=== PATIENT | male | born 1960 | race African-American/Black ===

== ENCOUNTER 2017-05-05 15:57 | Inpatient (IN) | payer OTHER ==
[~2017-05-05] VITALS: Ht 170.2 cm; Wt 69.9 kg
--- NOTE | 2017-05-05 16:05 | NUR ---
PRESENTS TO ER C/O LEFT LEG PAIN SINCE LAST NIGHT. NON TRAUMATIC. PER FAMILY PT SLURRED SPEECH LAST NIGHT 2099. CURRENTLY A/OX 4. BREATHING EVEN AND UNLABORED. NO SOB. VITALS STABLE. SAFETY AND COMFORT MEASURES IN PLACE. AWAITING MD ORDERS.
--- NOTE | 2017-05-05 17:15 | NUR ---
new iv started on left hand, 22 g. blood drawn and sent to lab.
[2017-05-05 17:29] LABS: BASOPHILS # (AUTO) 0.1 /CMM (0.0-0.2); BASOPHILS % (AUTO) 1.3 % (0.0-2.0); EOSINOPHILS # (AUTO) 0.1 /CMM (0.0-0.7); EOSINOPHILS % (AUTO) 2.8 % (0.0-6.0); HEMATOCRIT 30 % (39-51); HEMOGLOBIN 10.3 g/dL (13.5-17.5); LYMPHOCYTES # (AUTO) 0.9 /CMM (0.8-4.8); LYMPHOCYTES % (AUTO) 23.7 % (20.0-44.0); MEAN CORPUSCULAR HEMOGLOBIN 31 PG (26.0-33.0); MEAN CORPUSCULAR HGB CONC 34 g/dl (31.0-36.0); MEAN CORPUSCULAR VOLUME 91 fL (80-96); MONOCYTES # (AUTO) 0.4 /CMM (0.1-1.30); MONOCYTES % (AUTO) 9.1 % (2.0-12.0); NEUTROPHILS # (AUTO) 2.4 /CMM (1.8-8.9); NEUTROPHILS % (AUTO) 63.1 % (43.0-81.0); PLATELET COUNT (AUTO) 246 /CMM (150-450); RDW COEFFICIENT OF VARIATION 14.2 (11.5-15.0); RED BLOOD CELL COUNT(AUTO) 3.32 MIL/uL (4.5-6.0); WHITE BLOOD COUNT (AUTO) 3.9 K/uL (4.3-11.0)
[2017-05-05 17:40] LABS: INR 0.99 (0.85-1.15)
--- NOTE | 2017-05-05 17:42 | NUR ---
PATIENT TAKEN TO CT VIA STRETCHER.
[2017-05-05 17:44] LABS: TROPONIN I < 0.017 ng/mL (0.00-0.056)
[2017-05-05 17:49] LABS: ALANINE AMINOTRANSFERASE 89 U/L (12-78); ALBUMIN 3.8 g/dL (3.4-5.0); ALKALINE PHOSPHATASE 110 U/L (46-116); ASPARTATE AMINOTRANSFERASE 45 U/L (15-37); B-TYPE NATRIURETIC PEPTIDE 179 PG/ML (0-125); BILIRUBIN,DIRECT 0.2 mg/dL (0.0-0.2); BILIRUBIN,TOTAL 0.4 mg/dL (0.2-1.0); CALCIUM, SERUM 8.7 mg/dL (8.5-10.1); CARBON DIOXIDE 28 mmol/L (21-32); CHLORIDE 105 mmol/L (98-107); CREATININE 1.3 mg/dL (0.6-1.3); GLUCOSE 106 mg/dL (74-106); SODIUM SERUM 141 mmol/L (136-145); TOTAL PROTEIN, SERUM 8.6 g/dL (6.4-8.2); UREA NITROGEN, BLOOD 11 mg/dL (7-18)
--- NOTE | 2017-05-05 17:55 | NUR ---
PATIENT RETURNED FROM CT IN STABLE CONDITION.
--- NOTE | 2017-05-05 18:45 | NUR ---
US TECH AT BEDSIDE.
[2017-05-05] MEDS ORDERED: POTASSIUM CHLORIDE 20 MEQ TAB.PRT.SR PO ONE ×2 (19:00→19:02)
--- NOTE | 2017-05-05 19:01 | NUR ---
REPORT GIVEN TO GLADYS WHEAT FOR ZOE.
--- NOTE | 2017-05-05 19:10 | NUR ---
US TECH STATED POSITIVE BLE DVT
[2017-05-05] MEDS ORDERED: ENOXAPARIN SODIUM 30 MG/0.3 ML DISP.SYRIN SQ ONE (20:00)
[2017-05-05] MEDS ORDERED: ENOXAPARIN SODIUM 80 MG/0.8 ML DISP.SYRIN SQ ONE (20:06)
[2017-05-05] MEDS ORDERED: ZOLPIDEM TARTRATE 5 MG TABLET PO PRN (20:30)
[2017-05-05] MEDS ORDERED: MAG HYDROX/AL HYDROX/SIMETH 30 ML UDC PO PRN (20:30)
[2017-05-05] MEDS ORDERED: ACETAMINOPHEN 325 MG TABLET PO PRN (20:30)
[2017-05-05] MEDS ORDERED: Z GUARD REMEDY 2 OZ OINT TP PRN (20:30)
[2017-05-05] MEDS ORDERED: MORPHINE SULFATE INJ 2 MG/ML DISP.SYRIN IV ONE (20:30)
[2017-05-05] MEDS ORDERED: ONDANSETRON HCL/PF 4 MG/2 ML VIAL IVP PRN (20:30)
[2017-05-05] MEDS ORDERED: MAGNESIUM HYDROXIDE 30 ML UDC PO PRN (20:30)
[2017-05-05] MEDS ORDERED: MORPHINE SULFATE INJ 4 MG/ML DISP.SYRIN ONE (20:57)
--- NOTE | 2017-05-05 21:02 | NUR ---
TELE 104 FOR BILATERAL DVT, ACCEPTING.
[2017-05-05] MEDS ORDERED: PHEN100C4 PO (21:26)
[2017-05-05] MEDS ORDERED: CLON0.1T PO (21:26)
[2017-05-05] MEDS ORDERED: HYDR-4076 PO (21:26)
[2017-05-05] MEDS ORDERED: APIX5TAB PO (21:26)
[2017-05-05] MEDS ORDERED: OMEP40CA37 PO (21:26)
--- NOTE | 2017-05-05 21:45 | NUR ---
MIXOLOGIST ADMITTING NOTES RECEIVED REPORT FROM HILDA WHEAT. PATIENT ARRIVED ON UNIT TO ROOM 104 VIA GURNEY. A/A/O X3, ABLE TO ANSWER QUESTIONS & FOLLOW COMMANDS. BREATHING EVEN & UNLABORED, TOLERATING ROOM AIR. SKIN WARM, DRY & INTACT. BILATERAL LOWER EDEMA NOTED W/ MORE SWELLING & WARMTH ON LEFT LEG. PATIENT STATES PAIN ON BILATERAL LEGS. DENIES ANY CHEST PAIN OR DISCOMFORT. LEFT HAND IV #22 INTACT & FLUSHING WELL. ADMITTED TELE PATIENT AND W/ A-PACING ON MONITOR. LEFT CHEST WALL PACEMAKER NOTED. SAFETY MEASURES IN PLACE W/ CALL LIGHT WITHIN REACH. INSTRUCTED PATIENT TO CALL FOR ASSISTANCE. AWAITING ADMITTING ORDERS. WILL CONTINUE TO MONITOR CLOSELY.
[2017-05-05] MEDS ORDERED: ONDA4TAB10 PO (22:02)
[2017-05-05] MEDS ORDERED: BACL10TA PO (22:02)
[2017-05-05] MEDS ORDERED: NAPR-1009 PO (22:02)
[2017-05-05] MEDS ORDERED: NEBI10TA2 PO (22:02)
[2017-05-05] MEDS ORDERED: LISI40TA4 PO (22:02)
[2017-05-05] MEDS ORDERED: METO50TA16 PO (22:02)
[2017-05-05 22:45] VITALS: BP 159/114
[2017-05-05] MEDS: MORPHINE SULFATE INJ 4 MG/ML DISP.SYRIN IV PRN (23:49)
[2017-05-05] MEDS: hydrALAZINE HCL 25 MG TABLET PO SCH (23:53)
[2017-05-06] VITALS: BP 143/93
[2017-05-06 04:00] VITALS: BP 142/94
[2017-05-06] MEDS: hydrALAZINE HCL 25 MG TABLET PO SCH ×3 (06:03→17:10)
[2017-05-06] MEDS: MORPHINE SULFATE INJ 4 MG/ML DISP.SYRIN IV PRN ×2 (06:06→12:10)
--- NOTE | 2017-05-06 07:30 | NUR ---
PT RECEIVED RESTING COMFORTABLY IN BED WITH EYES CLOSED. NO S/S OR C/O PAIN OR DISTRESS NOTED. SIDE RAILS UP X2, CALL LIGHT LEFT WITHIN REACH. WILL CONTINUE PLAN OF CARE.
[2017-05-06 08:00] VITALS: BP 154/90
[2017-05-06 08:07] LABS: BASOPHILS % (AUTO) 0.4 % (0.0-2.0); EOSINOPHILS # (AUTO) 0.1 /CMM (0.0-0.7); EOSINOPHILS % (AUTO) 3.8 % (0.0-6.0); HEMATOCRIT 30 % (39-51); HEMOGLOBIN 10.1 g/dL (13.5-17.5); LYMPHOCYTES # (AUTO) 0.9 /CMM (0.8-4.8); LYMPHOCYTES % (AUTO) 28.8 % (20.0-44.0); MEAN CORPUSCULAR HEMOGLOBIN 31 PG (26.0-33.0); MEAN CORPUSCULAR HGB CONC 34 g/dl (31.0-36.0); MEAN CORPUSCULAR VOLUME 92 fL (80-96); MONOCYTES # (AUTO) 0.4 /CMM (0.1-1.30); MONOCYTES % (AUTO) 11.8 % (2.0-12.0); NEUTROPHILS # (AUTO) 1.7 /CMM (1.8-8.9); NEUTROPHILS % (AUTO) 55.2 % (43.0-81.0); PLATELET COUNT (AUTO) 223 /CMM (150-450); RDW COEFFICIENT OF VARIATION 15.4 (11.5-15.0); RED BLOOD CELL COUNT(AUTO) 3.27 MIL/uL (4.5-6.0); WHITE BLOOD COUNT (AUTO) 3.1 K/uL (4.3-11.0)
[2017-05-06] MEDS: CLONIDINE HCL 0.1 MG TABLET PO SCH ×2 (08:37→17:09)
[2017-05-06] MEDS: BACLOFEN (10 MG) 10 MG TABLET PO SCH ×3 (08:38→17:09)
[2017-05-06] MEDS: PHENYTOIN EXTENDED RELEASE 100 MG CAPSULE PO SCH ×2 (08:38→17:10)
[2017-05-06] MEDS: LISINOPRIL (20MG) 20 MG TABLET PO SCH ×2 (08:38→09:00)
[2017-05-06] MEDS: METOPROLOL TARTRATE 50 MG TABLET PO SCH ×2 (08:38→17:10)
[2017-05-06 08:40] LABS: CALCIUM, SERUM 8.4 mg/dL (8.5-10.1); CREATININE 1.3 mg/dL (0.6-1.3); MAGNESIUM 1.9 mg/dL (1.8-2.4); PHOSPHORUS 3.1 mg/dL (2.5-4.9); POTASSIUM 3.1 mmol/L (3.5-5.1)
[2017-05-06] MEDS: ENOXAPARIN SODIUM 80 MG/0.8 ML DISP.SYRIN SQ SCH ×2 (08:43→21:38)
[2017-05-06 12:00] VITALS: BP 111/76
[2017-05-06] MEDS: POTASSIUM CHLORIDE 20 MEQ TAB.PRT.SR PO SCH ×2 (12:00→13:54)
[2017-05-06 16:00] VITALS: BP 127/96
[2017-05-06] MEDS ORDERED: DOCUSATE SODIUM 100 MG CAPSULE PO PRN (16:00)
--- NOTE | 2017-05-06 18:42 | NUR ---
CHANGE OF SHIFT REPORT PT RESTING COMFORTABLY IN BED. NO S/S OR C/O PAIN OR DISTRESS NOTED. SIDE RAILS UP X2, CALL LIGHT LEFT WITHIN REACH. PT KEPT CLEAN, DRY, AND COMFORTABLE. NO SIGNIFICANT CHANGES SINCE PREVIOUS SHIFT. WILL GIVE REPORT TO TIFFANY WHEAT.
--- NOTE | 2017-05-06 19:50 | NUR ---
rn initial notes: received report from gianfranco mcdonald, pt in bed, sleeping, arouses to tactile stimuli, on ra, respiration even and unlabored. no facial grimace noted, appears calm and comfortable. pt able to state where he is, his full name and year, but yessi slow and needs much time. iv access patent and flushing well, on hl. on tele monitoring sinus rhythm hr 60. safety precautions for fall initiated call light in reach, will continue to monitor
[2017-05-06 20:00] VITALS: BP 116/80
[2017-05-07] VITALS: BP 113/79
[2017-05-07 04:00] VITALS: BP_SYST 119; BP_SYST 122; BP_SYST 92; BP_DIAS 55; BP_DIAS 74; BP_DIAS 85
[2017-05-07] MEDS: hydrALAZINE HCL 25 MG TABLET PO SCH ×5 (06:00→23:19)
[2017-05-07 06:37] LABS: CALCIUM, SERUM 8.2 mg/dL (8.5-10.1); CREATININE 1.4 mg/dL (0.6-1.3); POTASSIUM 3.3 mmol/L (3.5-5.1)
--- NOTE | 2017-05-07 06:54 | NUR ---
RN CLOSING NOTES: PT IN BED, AWAKE, REMAINS A/O X2-3, ON RA DENIES ANY PAIN OR DISCOMFORT AT THIS TIME, VS REMAINS STABLE, IV ACCESS REMAINS PATENT AND FLUSHING WELL, FOR PT AGAIN TODAY, REMAINS ON TELE MONITORING ON A PACING HR 78. SAFETY PRECAUTIONS FOR FALL REMAINS ENGAGED, CALL LIGHT IN REACH, WILL ENDORSE TO DAY RN FOR ZOE.
--- NOTE | 2017-05-07 07:10 | NUR ---
RN INITIAL NOTE PATIENT RECEIVED IN BED SLEEPING. EASILY AROUSED. NO S/S OF PAIN OR DISCOMFORT. SINUS RHYTHM ON TELE MONITOR. RESPIRATIONS ARE EVEN AND UNLABORED. SATING WELL ON ROOM AIR. SKIN IS WARM AND DRY TO TOUCH. IV SITE FLUSHED, PATENT. SAFETY PRECAUTIONS IMPLEMENTED: BED IN LOCKED, LOW POSITION WITH TWO SIDE RAILS UP. CALL LIGHT AND BELONGINGS WITHIN EASY REACH. WILL CONTINUE TO MONITOR.
[2017-05-07 08:00] VITALS: BP 122/55
[2017-05-07] MEDS: PHENYTOIN EXTENDED RELEASE 100 MG CAPSULE PO SCH ×2 (08:27→17:28)
[2017-05-07] MEDS: LISINOPRIL (20MG) 20 MG TABLET PO SCH (08:28)
[2017-05-07] MEDS: BACLOFEN (10 MG) 10 MG TABLET PO SCH ×3 (08:28→17:28)
[2017-05-07] MEDS: PANTOPRAZOLE 40 MG TABLET.DR PO SCH (08:28)
[2017-05-07] MEDS: CLONIDINE HCL 0.1 MG TABLET PO SCH ×2 (08:28→17:00)
[2017-05-07] MEDS: METOPROLOL TARTRATE 50 MG TABLET PO SCH ×2 (08:29→17:00)
[2017-05-07] MEDS: ENOXAPARIN SODIUM 80 MG/0.8 ML DISP.SYRIN SQ SCH ×2 (08:33→21:18)
[2017-05-07] MEDS: HYDROCODONE/APAP 5/325MG 1 EACH TABLET PO PRN ×2 (08:35→23:19)
[2017-05-07] MEDS ORDERED: POTASSIUM CHLORIDE 20 MEQ TAB.PRT.SR PO SCH (11:00)
[2017-05-07 12:00] VITALS: BP 119/85
[2017-05-07 16:00] VITALS: BP 92/55
[2017-05-07] MEDS ORDERED: POTASSIUM CHLORIDE 20 MEQ TAB.PRT.SR PO ONE (17:00)
[2017-05-07 17:07] LABS: CHOLESTEROL 154 mg/dL (<200); HDL CHOLESTEROL 52 mg/dL (40-60); LDL 88 mg/dL (0-99); TRIGLYCERIDES 62 mg/dL (30-150)
--- NOTE | 2017-05-07 17:13 | NUR ---
[facility] called number on facesheet [phone] which is disconnected. Gas Plant Operator was unable to locate next of kin. Per MARY ALICE Solis, pt had a stroke and is unable to provide any information. Per [facility] consult pt is unable to recall any phone numbers. [facility] called ER spoke with Mitchell WHEAT, they to have no next of kin contact.
[2017-05-07 20:00] VITALS: BP 130/92
--- NOTE | 2017-05-07 20:15 | NUR ---
MSRN SEEN BY DR. JACINTO. SPOKE TO PATIENT, ABLE TO PROVIDE OTHER HEALTH INFORMATION. TO CONTINUE.
--- NOTE | 2017-05-07 23:15 | NUR ---
MSRN LEFT ARM PAIN, NORCO 1 TAB PO ADMINISTERED. UNABLE TO START HL, POOR VEINS.
[2017-05-08 04:00] VITALS: BP 144/95
--- NOTE | 2017-05-08 04:00 | NUR ---
MSRN REMAINS STABLE. SLEPT WELL.
--- NOTE | 2017-05-08 06:30 | NUR ---
MSRN APRESOLINE TO TAKE WITH BREAKFAST PATIENT REQUESTED. WENT BACK TO SLEEP. WILL ENDORSE TO INCOMING RN
[2017-05-08] MEDS: hydrALAZINE HCL 25 MG TABLET PO SCH ×3 (06:45→18:00)
[2017-05-08 06:53] LABS: CALCIUM, SERUM 8.3 mg/dL (8.5-10.1); CREATININE 1.3 mg/dL (0.6-1.3); POTASSIUM 3.3 mmol/L (3.5-5.1)
[2017-05-08] MEDS: PANTOPRAZOLE 40 MG TABLET.DR PO SCH (07:30)
[2017-05-08 08:00] VITALS: BP 123/75
[2017-05-08] MEDS: PHENYTOIN EXTENDED RELEASE 100 MG CAPSULE PO SCH ×2 (09:44→17:34)
[2017-05-08] MEDS: BACLOFEN (10 MG) 10 MG TABLET PO SCH ×3 (09:46→17:34)
[2017-05-08] MEDS: METOPROLOL TARTRATE 50 MG TABLET PO SCH ×2 (09:47→17:34)
[2017-05-08] MEDS: ENOXAPARIN SODIUM 80 MG/0.8 ML DISP.SYRIN SQ SCH ×2 (09:48→20:43)
[2017-05-08] MEDS: CLONIDINE HCL 0.1 MG TABLET PO SCH ×2 (09:49→17:34)
[2017-05-08] MEDS: LISINOPRIL (20MG) 20 MG TABLET PO SCH (10:00)
[2017-05-08] MEDS ORDERED: POTASSIUM CHLORIDE 20 MEQ TAB.PRT.SR PO SCH (14:00)
[2017-05-08 16:00] VITALS: BP 130/96
--- NOTE | 2017-05-08 18:30 | NUR ---
POTASSIUM REPLACEMENT GIVEN.NORM KENNEDY ELECTRIC WIRER IN ,ORDERS GIVEN.
--- NOTE | 2017-05-08 20:10 | NUR ---
Start of Shift: A/o x2 speech is garbled unable to move right arm or and only slight movement right lower leg. on med surg status on r/a lungs clear bilat. abd soft non tender B/S x4. skin w/d no breakdowns. On Fall precaution. Siderails up. bed lowest position. Call light within reach. Denies of any distress.
[2017-05-08 20:52] VITALS: BP 109/69
[2017-05-08] MEDS ORDERED: RIVAROXABAN 15 MG TABLET PO SCH (21:00)
[2017-05-09] MEDS: hydrALAZINE HCL 25 MG TABLET PO SCH ×5 (00:08→23:29)
[2017-05-09 00:09] VITALS: BP 122/78
[2017-05-09 04:16] VITALS: BP 122/78
[2017-05-09] MEDS: PANTOPRAZOLE 40 MG TABLET.DR PO SCH ×2 (06:10→08:39)
--- NOTE | 2017-05-09 06:18 | NUR ---
End Of Shift: Lying in bed watching tv Denies of any distress. No prns or any changes through out the shift. Side rails up Call light within reach, bed in lowest position. Will give am shift Rn report.
[2017-05-09 07:00] LABS: CALCIUM, SERUM 8.5 mg/dL (8.5-10.1); CREATININE 1.2 mg/dL (0.6-1.3); POTASSIUM 3.5 mmol/L (3.5-5.1)
[2017-05-09 07:17] LABS: THYROID STIMULATING HORMONE 1.674 uIU/mL (0.358-3.74)
--- NOTE | 2017-05-09 07:45 | NUR ---
RN OPENING NOTES RECEIVED PATIENT IN BED, ALERT ORIENTED X4. NO ACUTE DISTRESS NOTED. NO SOB NOTED. BREATHING UNLABORED.SAFETY MEASURES IN PLACE. CALL LIGHT WITHIN REACH. WILL CONTINUE TO MONITOR ACCORDINGLY.
[2017-05-09 08:00] VITALS: BP 144/99
[2017-05-09] MEDS: BACLOFEN (10 MG) 10 MG TABLET PO SCH ×3 (08:39→16:47)
[2017-05-09] MEDS: CLONIDINE HCL 0.1 MG TABLET PO SCH ×2 (08:39→16:48)
[2017-05-09] MEDS: METOPROLOL TARTRATE 50 MG TABLET PO SCH ×2 (08:40→16:48)
[2017-05-09] MEDS: LISINOPRIL (20MG) 20 MG TABLET PO SCH (08:40)
[2017-05-09] MEDS: PHENYTOIN EXTENDED RELEASE 100 MG CAPSULE PO SCH ×2 (08:42→16:47)
[2017-05-09] MEDS: ENOXAPARIN SODIUM 80 MG/0.8 ML DISP.SYRIN SQ SCH ×2 (08:43→20:46)
[2017-05-09 12:00] VITALS: BP 109/89
[2017-05-09 16:00] VITALS: BP_SYST 135; BP_SYST 139; BP_DIAS 89; BP_DIAS 98
--- NOTE | 2017-05-09 18:21 | NUR ---
RN CLOSING NOTES PATIENT IN BED EYES CLOSED, RESPOND TO VERBAL AND TACTILE STIMULI, ALERT ORIENTED X4. NO SOB NOTED. NO ACUTE DISTRESS NOTED. BREATHING UNLABORED. DUE MEDICATIONS GIVEN, NO ASE NOTED. NEEDS ATTENDED AND ANTICIPATED. HOB ELEVATED. SAFETY MEASURES IN PLACE. CALL LIGHT WITHIN REACH. WILL CONTINUE TO MONITOR ACCORDINGLY. WILL ENDORSE TO NIGHT NURSE FOR CONTINUITY OF CARE.
--- NOTE | 2017-05-09 19:30 | NUR ---
RN NOTE; RECEIVED PT IN BED AWAKE AND ALERT. BREATHING EVENLY. NO SOB. NAD . SKIN WARM AND DRY. W/ NO IV SITE. W/ INTERMITTENT BLE PAIN. NEEDS ATTENDED. ASSISTED W. ADLS. BED LOW LOCKED .CALL LIGHT WITHIN REACH. WILL CONT TO MONITOR.
[2017-05-09 20:00] VITALS: BP 123/83
[2017-05-09] MEDS: HYDROCODONE/APAP 5/325MG 1 EACH TABLET PO PRN (20:45)
--- NOTE | 2017-05-09 20:45 | NUR ---
NORCO GIVEN ORDERED FOR C/O MOD BLE PAIN .WILL CONT TO MONITOR ,
[2017-05-10] VITALS: BP 144/90
[2017-05-10] MEDS: hydrALAZINE HCL 25 MG TABLET PO SCH ×3 (05:56→18:11)
--- NOTE | 2017-05-10 06:52 | NUR ---
PT IN BED W/ SITTER AT THE BEDSIDE. STABLE W/ NO ACUTE EVENT DURING THE NIGHT. ATTENDED TO INSERT AN IV LINE FOR HIM BUT HE REFUSED. NEEDS ATTENDED. BED LOW LOCKED.CALL LIGHT WITHIN REACH. WILL CONT TO MONITOR AND WILL ENDORSE TO AM SHIFT FOR ZOE.
--- NOTE | 2017-05-10 07:10 | NUR ---
ms rn initial notes Received patient in bed, asleep, head of bed elevated, no SOB or distress noted, on room air and tolerated well. Sitter at bedside for constant monitoring. No IV access as endorsed by night time babysitter RN, aware. Call light with in patient reach, will continue to monitor accordingly.
[2017-05-10 08:00] VITALS: BP 162/91
[2017-05-10] MEDS: ENOXAPARIN SODIUM 80 MG/0.8 ML DISP.SYRIN SQ SCH ×2 (08:34→22:06)
[2017-05-10] MEDS: CLONIDINE HCL 0.1 MG TABLET PO SCH ×2 (08:35→17:00)
[2017-05-10] MEDS: PHENYTOIN EXTENDED RELEASE 100 MG CAPSULE PO SCH ×2 (08:35→17:01)
[2017-05-10] MEDS: BACLOFEN (10 MG) 10 MG TABLET PO SCH ×3 (08:35→17:00)
[2017-05-10] MEDS: FOLIC ACID 1 MG TABLET PO SCH (08:35)
[2017-05-10] MEDS: LISINOPRIL (20MG) 20 MG TABLET PO SCH (08:35)
[2017-05-10] MEDS: CYANOCOBALAMIN 500 MCG TABLET PO SCH (08:36)
[2017-05-10] MEDS: METOPROLOL TARTRATE 50 MG TABLET PO SCH ×2 (08:36→17:00)
[2017-05-10 16:00] VITALS: BP 134/89
--- NOTE | 2017-05-10 19:16 | NUR ---
ms rn closing notes All needs provided, attended, and anticipated, call light with in patient reach, endorsed to next shift RN to continue care.
--- NOTE | 2017-05-10 19:45 | NUR ---
RN INITIAL NOTE RECEIVED PT IN NO ACUTE DISTRESS IN BED. PT IS A/O X 3 AND ABLE TO MAKE NEEDS KNOWN. PT SPEECH IS AT TIMES HARD TO UNDERSTAND. PT IS ON RA AND TOLERATING WELL. PT IS NOT C/O ANY SOB, DIFFICULTY BREATHING OR PAIN AT THIS TIME. PT REFUSED IV ACCESS AGAIN. NORM KENNEDY FOREIGN LANGUAGE STENOGRAPHER MADE AWARE ON PREVIOUS SHIFT. WILL CONTINUE TO MONITOR PT AND ASK FOR IV ACCESS IF POSSIBLE. BED IN LOW LOCK POSITION WITH RAILS UP X 2 AND BED ALARM. ALL SAFETY MEASURES ENSURED AND CARRIED OUT. WILL CONTINUE TO MONITOR PT.
[2017-05-10 20:00] VITALS: BP 135/83
--- NOTE | 2017-05-10 21:00 | NUR ---
RN NOTES PATIENT WITHOUT 1:1 SITTER, STAFF AT BEDSIDE AT ALL TIMES TO MAINTAIN PATIENT SAFETY. PATIENT NOTED TO BECOME AGGRESSIVE AND COMBATIVE. ATTEMPTED TO REORIENT PATIENT, INEFFECTIVE. PATIENT CONTINUES TO SWING LEFT ARM AND KICK STAFF. PT ATTEMPTED MULTIPLE TIMES TO TRY TO GET OUT OF BED, SETTING OFF BED ALARM. PATIENT ABLE TO EXPRESS PAIN, REQUESTING FOR PAIN MEDICATION, BUT REFUSING PO. IV ACCESS OBTAINED, WILL ADMINISTER IV PAIN MEDS. PATIENT RESTRAINED WITH BILATERAL SOFT WRIST RESTRAINTS FOR SAFETY. WILL CONTINUE TO CLOSELY MONITOR.
[2017-05-10] MEDS: MORPHINE SULFATE INJ 4 MG/ML DISP.SYRIN IV PRN (22:02)
[2017-05-11 04:00] VITALS: BP 171/107
[2017-05-11] MEDS: HYDROCODONE/APAP 5/325MG 1 EACH TABLET PO PRN (05:06)
[2017-05-11] MEDS: hydrALAZINE HCL 25 MG TABLET PO SCH ×4 (05:07→14:07)
--- NOTE | 2017-05-11 07:00 | NUR ---
RN NOTES BILATERAL SOFT WRIST RESTRAINTS REMOVED, SAFETY MAINTAINED THROUGHOUT SHIFT. 1:1 SITTER AT BEDSIDE FOR SAFETY PRECAUTIONS.
--- NOTE | 2017-05-11 07:10 | NUR ---
RN INITIAL NOTES: REC'D PT ASLEEP ON BED, NOT IN ANY DISTRESS, EASILY AROUSABLE, A/O X 3, NOTED SLURRED SPEECH. ON ROOM AIR, DENIES SOB. HAS L HAND G22, GOT INFILTRATED WHEN FLUSHED. HAS 1:1 SITTER. PROVIDED COMFORT & SAFETY MEASURES. BED KEPT LOW & IN LOCKED POS. CALL LIGHT PLACED W/IN REACH. WILL CONTINUE TO MONITOR & ATTEND PT NEEDS.
[2017-05-11 08:00] VITALS: BP_SYST 153; BP_SYST 155; BP_DIAS 98
[2017-05-11 08:17] LABS: IMMUNOGLOBULIN A, SERUM 231 mg/dL (90-386); IMMUNOGLOBULIN G, SERUM 1533 mg/dL (700-1600); IMMUNOGLOBULIN M, SERUM 38 mg/dL (20-172)
[2017-05-11] MEDS: BACLOFEN (10 MG) 10 MG TABLET PO SCH ×3 (08:24→17:19)
[2017-05-11] MEDS: FOLIC ACID 1 MG TABLET PO SCH (08:24)
[2017-05-11] MEDS: PANTOPRAZOLE 40 MG TABLET.DR PO SCH (08:24)
[2017-05-11] MEDS: LISINOPRIL (20MG) 20 MG TABLET PO SCH (08:25)
[2017-05-11] MEDS: CLONIDINE HCL 0.1 MG TABLET PO SCH ×2 (08:25→17:00)
[2017-05-11] MEDS: ENOXAPARIN SODIUM 80 MG/0.8 ML DISP.SYRIN SQ SCH (08:26)
[2017-05-11] MEDS: METOPROLOL TARTRATE 50 MG TABLET PO SCH ×2 (08:26→17:00)
[2017-05-11] MEDS: CYANOCOBALAMIN 500 MCG TABLET PO SCH (08:28)
[2017-05-11] MEDS ORDERED: POTASSIUM CHLORIDE 20 MEQ TAB.PRT.SR PO ONE (13:30)
[2017-05-11 14:20] LABS: *SPE ALBUMIN 3.8 g/dL (2.9-4.4); *SPE ALPHA-1-GLOBULIN 0.4 g/dL (0.0-0.4); *SPE ALPHA-2-GLOBULIN 0.7 g/dL (0.4-1.0); *SPE BETA GLOBULIN 1.2 g/dL (0.7-1.3); *SPE GLOBULIN, TOTAL 3.9 g/dL (2.2-3.9); *SPE M-SPIKE Not Observed g/dL (Not Observed); *SPEGAMMA GLOBULIN 1.5 g/dL (0.4-1.8)
[2017-05-11] MEDS ORDERED: ENOX80DI SQ (15:40)
[2017-05-11] MEDS ORDERED: FOLI1TAB16 PO (15:40)
[2017-05-11 16:00] VITALS: BP 130/85
[2017-05-11 17:00] VITALS: BP 128/86
--- NOTE | 2017-05-11 17:30 | NUR ---
BOX MACHINE OPERATOR NOTES: PT DC'D TO [facility] ORDERED, REPORT GIVEN TO MARY ALICE COLEY. DC DOCUMENTS PROVIDED TO THE CARDIAC MONITOR. IV LINE ACCESS REMOVED, PRESSURE DRESSING APPLIED, NO SIGN OF INFECTION NOTED. DR. KIRKPATRICK INFORMED ABOUT THE DC MEDICATION TO CONTINUE DILATIN AT [facility] (PHENYTOIN LEVEL IS 58.2), NO CHANGES HAS BEEN MADE. PT LEFT THE FACILITY IN STABLE CONDITION VIA GURNEY ACCOMPANIED BY CARDIAC MONITOR. NO CONCERN IDENTIFIED AT THIS TIME. BELONGINGS CHECKED BY DIGITAL MUSIC INSTRUCTOR AND SENT W/ PT.
== END 2017-05-11 17:20 | DRG 299 ==
LOC: ER 15:59 → TELE1 21:45 → MEDSG1 05-07 16:31
PROVIDERS: ADMIT Internal Medicine; ATTEND Internal Medicine
DX: I82.413 Acute embolism and thrombosis of femoral vein, bilateral (principal); R53.2 Functional quadriplegia; D68.59 Other primary thrombophilia; I82.433 Acute embolism and thrombosis of popliteal vein, bilateral; I69.351 Hemiplegia and hemiparesis following cerebral infarction affecting right dominant side; W18.30XA Fall on same level, unspecified, initial encounter; I69.320 Aphasia following cerebral infarction; G40.909 Epilepsy, unspecified, not intractable, without status epilepticus; Z86.718 Personal history of other venous thrombosis and embolism; Z79.01 Long term (current) use of anticoagulants; K21.9 Gastro-esophageal reflux disease without esophagitis; I10 Essential (primary) hypertension; J44.9 Chronic obstructive pulmonary disease, unspecified; Z79.899 Other long term (current) drug therapy; Y92.009 Unspecified place in unspecified non-institutional (private) residence as the place of occurrence of the external cause; E87.6 Hypokalemia; D63.8 Anemia in other chronic diseases classified elsewhere; R74.0 Nonspecific elevation of levels of transaminase and lactic acid dehydrogenase [LDH]; T42.0X5A Adverse effect of hydantoin derivatives, initial encounter
CPT/HCPCS: 36415; 70450-TC; 71045-TC; 80048-TC; 80061-TC; 80076-TC; 80185-TC; 82550-TC; 82728-TC; 82746; 82784; 83540-TC; 83735-TC; 83880; 84100-TC; 84155; 84165; 84443-TC; 84484-TC; 85025-TC; 85730-TC; 86334; 87081-TC; 93970-TC; 97110-TC; 97112-TC; 97530-TC; A4606; J1650; J2270; Z7610

== ENCOUNTER 2022-05-07 19:38 | Emergency (ER) | payer MEDICARE, OTHER ==
[~2022-05-07] VITALS: Ht 167.6 cm; Wt 72.6 kg
[~2022-05-07 19:38] MED LIST: BACL10TA PO; CLON0.1T PO; ENOX80DI SQ; FOLI1TAB16 PO; HYDR-4076 PO; LISI40TA13 PO; METO50TA16 PO; NEBI10TA2 PO; OMEP40CA21 PO; ONDA-97 PO; PHEN100C4 PO
[2022-05-07 21:11] VITALS: BP 200/95
[2022-05-07] MEDS ORDERED: KETOROLAC TROMETHAMINE INJ 60 MG/2 ML VIAL IM ONE (22:30)
[2022-05-07] MEDS ORDERED: KETOROLAC TROMETHAMINE INJ 30 MG/ML VIAL ONE (22:31)
== END 2022-05-08 02:03 | disposition home or self-care (01) ==
LOC: ER 19:53
DX: S09.90XA Unspecified injury of head, initial encounter (principal); I10 Essential (primary) hypertension; K21.9 Gastro-esophageal reflux disease without esophagitis; Z79.899 Other long term (current) drug therapy; W05.1XXA Fall from non-moving nonmotorized scooter, initial encounter; Y93.89 Activity, other specified; Y92.89 Other specified places as the place of occurrence of the external cause; Y99.8 Other external cause status
CPT/HCPCS: 99285; 70450; 96372; J1885